=== PATIENT | male | born 1980 | race Caucasian/White ===

== ENCOUNTER 2016-09-05 12:51 | Emergency (ER) | payer BC ==
[2016-09-05 12:56] VITALS: BMI 35.2
--- NOTE | 2016-09-05 13:15 | PDOC ---
History of Present Illness - General Chief Complaint: Blood Pressure Problem Stated Complaint: HTN Time Seen by Provider: 09/05/16 12:52 History Source: Patient Exam Limitations: No Limitations - History of Present Illness Initial Comments: 09/05/16 13:12 This is a 35 yo M h/o chronic sinusitis, h/o HTN (not on medications) who presents to the ER with asymptomatic hypertension His blood pressure is typically 140s No headache, vision changes, chest pain, shortness of breath, palpitations PT denies stressful situations at this time Currently, his blood pressure is 158/112 He does not have a pmd, is looking for one PMH: HTN, chronic sinusitis PSH: ORIF ankle, nasal surgery Meds: ALL: Asa --> hives Social: denies drugs cigarettes, alcohol use, advisory software engineer at [employer] GENERAL/CONSTITUTIONAL: No: fever, chills, weakness, loss of appetite. HEAD, EYES, EARS, NOSE AND THROAT: No: change in vision, ear pain, discharge, sore throat, throat swelling. CARDIOVASCULAR: No: chest pain, lightheadedness, palpitations, syncope RESPIRATORY: No: cough, shortness of breath, wheezing, hemoptysis, stridor. GASTROINTESTINAL: No: nausea, vomiting, diarrhea, abdominal cramping, rectal bleeding, constipation. GENITOURINARY: No: dysuria, hematuria, frequency, urgency, flank pain. MUSCULOSKELETAL: No: back pain, neck pain, joint pain, muscle swelling or pain SKIN AND BREASTS: No: lesions, pallor, rash or easy bruising. NEUROLOGIC: No: headache, vertigo, paresthesias, weakness ENDOCRINE: No: unexplained weight gain or loss HEMATOLOGIC/LYMPHATIC: No: anemia, easy bleeding, swelling nodes. GENERAL: The patient is in no acute distress. HEAD: Normal with no signs of trauma. EYES: PERRLA, EOMI, sclera anicteric, conjunctiva clear. ENT: Ears normal, nares patent, oropharynx clear without exudates. Moist mucous membranes. NECK: Normal range of motion, supple without lymphadenopathy, JVD, or masses. LUNGS: Breath sounds equal, clear to auscultation bilaterally. No wheezes, and no crackles. HEART:Regular rate and rhythm, normal S1 and S2 without murmur, rub or gallop. ABDOMEN: Soft, nontender, normoactive bowel sounds. No guarding, no rebound. No masses palpable. EXTREMITIES: Normal range of motion, no edema. No clubbing or cyanosis. No erythema, or tenderness. NEUROLOGICAL: Cranial nerves II through XII grossly intact. Normal speech. No focal neurological deficits. MUSCULOSKELETAL: Back non-tender to palpation, no CVA tenderness SKIN: Warm, Dry, normal turgor, no rashes or lesions noted. 09/05/16 13:17 09/05/16 13:28 Past History - Past Medical History Allergies/Adverse Reactions: Allergies Allergy/AdvReac Type Severity Reaction Status Date / Time aspirin Allergy Mild Hives Verified 09/05/16 12:52 Home Medications: Ambulatory Orders Cetirizine HCl [Zyrtec -] 10 mg PO DAILY 09/05/16 Hydrochlorothiazide [Hctz -] 25 mg PO DAILY #30 tablet 09/05/16 HTN: Yes - Psycho/Social/Smoking Cessation Hx Anxiety: No Suicidal Ideation: No Smoking History: Never smoked Hx Alcohol Use: No Drug/Substance Use Hx: No Substance Use Type: None *Physical Exam - Vital Signs Last Vital Signs Temp Pulse Resp BP Pulse Ox 98 F 86 16 158/112 100 09/05/16 12:51 09/05/16 12:51 09/05/16 12:51 09/05/16 12:51 09/05/16 12:51 Heart Score/ECG Review #1 ECG reviewed & interpreted by me at: 13:45 09/05/16 13:45 Twelve-lead EKG was performed and reviewed by me. There is normal sinus rhythm with a normal rate of 80 bpm. The axis is normal. The intervals are normal - pr: 138ms, RS:100ms, QTc:440ms. non specific st changes ED Treatment Course - LABORATORY CBC & Chemistry Diagram: 09/05/16 13:27 09/05/16 13:27 Medical Decision Making - Medical Decision Making 09/05/16 13:28 Pt repeat BP 180s/120s Will do basic labs Will do EKG Will give HCTZ Will discharge to home Follow up with PMD on Thursday09/05/16 13:47 09/05/16 14:03 Laboratory Tests 09/05/16 13:27 WBC 7.8 Hgb 16.6 Hct 48.7 Plt Count 295 09/05/16 14:22 Laboratory Tests 09/05/16 13:27 Sodium 137 Potassium 3.5 Chloride 102 Carbon Dioxide 29 H BUN 15 Creatinine 0.9 Random Glucose 96 09/05/16 14:32 Laboratory Tests 09/05/16 13:27 Creatine Kinase 120 Troponin I < 0.03 L Clinical impression: Asymptomatic hypertension *DC/Admit/Observation/Transfer Diagnosis at time of Disposition: Hypertension Qualifiers: Hypertension type: essential hypertension Qualified Code(s): I10 - Essential ( primary) hypertension - Discharge Dispostion Disposition: HOME Condition at time of disposition: Stable Admit: No - Prescriptions Prescriptions: Hydrochlorothiazide [Hctz -] 25 mg PO DAILY #30 tablet - Patient Instructions Printed Discharge Instructions: DI for High Blood Pressure Additional Instructions: [place] Thank you for coming in to the ER today Please take medications as prescribed Please also return to the ER for any new symptoms - headache, chest pain, palpitations, shortness of breath You must follow up with a primary care physician within 1 week
[2016-09-05] MEDS ORDERED: HYDROCHLOROTHIAZIDE 25 MG TABLET (FP) PO ONE (13:27)
[2016-09-05] MEDS ORDERED: HYDROCHLOROTHIAZIDE 25 MG TABLET (FP) ONE (13:36)
[2016-09-05 13:40] LABS: BASOPHIL 1.2 % (0-2.0); EOSINOPHIL 7.2 % (0-4.5); MCH 26.1 pg (25.7-33.7); MEAN CELL VOLUME 76.7 fl (80-96); MEAN PLT VOLUME 8.1 fl (7.5-11.1); NEUTROPHILS 43.3 % (42.8-82.8); PLATELET COUNT 295 K/MM3 (134-434); RDW 12.5 % (11.9-15.9); WHITE BLOOD COUNT 7.8 K/mm3 (4.0-10.0)
[2016-09-05 13:58] LABS: ALBUMIN 4.9 g/dl (3.5-5.0); ALK PHOS 92 U/L (32-92); ANION GAP 6 (8-16); CALCIUM 9.4 mg/dl (8.4-10.2); CO2 29 mmol/L (22-28); CREATININE 0.9 mg/dl (0.6-1.3); GLUCOSE,RANDOM 96 mg/dl (74-106); SGOT/AST 30 U/L (10-42); SGPT/ALT 38 U/L (10-40); TOT PROT 8.4 g/dl (6.4-8.3)
[2016-09-05 14:01] LABS: CPK(DFH) 120 IU/L (38-174)
[2016-09-05 14:17] LABS: BILIRUBIN,TOTAL 0.4 mg/dl (0.2-1.0)
[2016-09-05 14:30] VITALS: PULSE 82; TEMP 98.3
[2016-09-05 14:31] LABS: TROPONIN I (DFP) < 0.03 ng/ml (0.03-0.50)
[2016-09-05 14:53] VITALS: BP 162/112
--- NOTE | 2016-09-06 18:31 | EKG ---
Test Reason : Blood Pressure : / mmHG Vent. Rate : 080 BPM Atrial Rate : 080 BPM P-R Int : 138 ms QRS Dur : 100 ms QT Int : 382 ms P-R-T Axes : 055 056 050 degrees QTc Int : 440 ms NORMAL SINUS RHYTHM NONSPECIFIC ST ABNORMALITY ABNORMAL ECG NO PREVIOUS ECGS AVAILABLE Confirmed by AUNDREA LILLY, RAMÓN ([id number]) on 09/06/2016 6:31:27 PM Referred By: BANDAR Confirmed By:RAMÓN GUILLAUME MD
== END 2016-09-05 14:56 | disposition home or self-care (01) ==
LOC: FER 12:51
DX: I10 Essential (primary) hypertension (principal); J32.8 Other chronic sinusitis
CPT/HCPCS: 36415; 80053; 82550; 84484; 85025; 93005; 99283-25